=== PATIENT | male | born 1950 ===

== ENCOUNTER 2018-02-13 09:34 | Emergency (ER) | payer SELFPAY ==
[2018-02-13] MEDS ORDERED: LEVOPHED KIT (*) 1 IVSOL 1 KIT IV ONE (09:42)
[2018-02-13 10:18] LABS: PLATELET COUNT, AUTOMATED 190 K/uL (150-450)
[2018-02-13 10:25] LABS: INR 1.86
[2018-02-13] MEDS ORDERED: NS(*) 0.9% 500 ML BAG 500 ML ONE (10:39)
[2018-02-13] MEDS ORDERED: NS 0.9% IVP SCH ×2 (10:45→10:50)
[2018-02-13] MEDS ORDERED: LORAZEPAM IVP SCH ×2 (10:45→10:50)
[2018-02-13] MEDS ORDERED: LORazepam 2 MG/ML VIAL ONE (10:46)
[2018-02-13] MEDS ORDERED: NS(*) 0.9% 1000 ML BAG 1,000 ML ONE (10:50)
[2018-02-13] MEDS ORDERED: TRANEXAMIC AC 1000 MG/10ML SDV ONE (11:40)
[2018-02-13] MEDS ORDERED: IOPAMIDOL 76% 75 ML INFUS BTL 75 ML ONE (12:39)
[2018-02-13] MEDS ORDERED: IOPAMIDOL 61% 75 ML INFUS BTL 75 ML ONE (12:39)
--- NOTE | 2018-02-13 13:24 | RADIOLOGY IMAGING REPORT ---
FACILITY: [facility] [place] PATIENT NAME: Law Cotton : 1950 MR: [id number] V: [id number] EXAM DATE: ORDERING PHYSICIAN: ADRIAN GUEVARA TECHNOLOGIST: Location: [facility] [place] Patient: Law Cotton : 1950 Visit/Account:[id number] Date of Sevice: 02/13/2018 Exam type: CHEST SINGLE AP History: CODE BLUE, ET tube placement, chest tube placement Comparison: None. Findings: There are numerous artifacts from overlapping devices limiting evaluation of the thorax. There is op acification of the lower two thirds of the left thorax with overlying subcutaneous emphysema. The la teral most aspect of the left ribs are not included on study although multiple left rib fractures are suspected. There is a left-sided chest tube the distal tip projects over the mid left thorax. No d efinite pneumothorax seen although study is limited due to the supine nature. There is an NG/OG tube in place. The distal tip projects beyond the inferior border of the film although passes through th e expected location of the gastroesophageal junction. There is an endotracheal tube in place distal tip also not ideally seen due to numerous overlapping artifacts although appears to be between the cl avicles and salud. There is no evidence of mediastinal shift. Cardiac silhouette appears enlarged IMPRESSION: 1. Support lines and tubes as described Dense opacification over the lower two thirds of the left thorax with overlapping subcutaneous emphys thien. This may represent pulmonary contusion/hemorrhage versus atelectasis given the clinical history of trauma Left RIBS not ideally seen although multiple left rib fractures are suspected given the subcutaneous emphysema Report Dictated By: Dot Davis MD at 02/13/2018 1:13 PM Report E-Signed By: Dot Davis MD at 02/13/2018 1:18 PM WSN:[id number]
--- NOTE | 2018-02-13 13:46 | ER Report ---
History and Physical Time Seen By MD: 09:00 Hx. of Stated Complaint: Arrest HPI/ROS Arrived in arrest to the ED. 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 ACLS was initiated on his arrival to the ED. An ultrasound showed pericardial tamponade. Dr. Balderas and I performed a left thoracotomy in the ED. Blood was encountered in the chest and a few superficial lacerations to the heart. We repaired the largest laceration with a 3-0 prolene suture. A chest tube was placed and the chest was temporarily closed. While waiting for transport he was resuscitated with balanced blood products. He recieved 12 of prbc 8 of FFP and 2 packs of platelets. I had to open the chest two more times to evaculate clot. There was no OR available and due to weather conditions the patient could not be transported quickly. He at 12:45. Unable To Obtain Past Medical: Unable to Obtain/Update Reviewed Nurses Notes: No Old Medical Records Reviewed: No Smoking Status: Heavy Tobacco Smoker Constitutional Vital Sign - Last 24 Hours 02/13/18 02/13/18 02/13/18 02/13/18 09:34 09:35 09:36 09:38 Pulse ??? B/P (MAP) 120/93 (102) 58/49 (52) O2 Delivery Ambu-Bag FiO2 100.0 02/13/18 02/13/18 02/13/18 02/13/18 09:40 09:44 09:45 09:48 B/P (MAP) 61/46 (51) 67/55 (59) 64/23 (37) FiO2 100.0 02/13/18 02/13/18 02/13/18 02/13/18 09:49 09:51 09:53 09:55 Pulse 56 B/P (MAP) 39/25 (30) 151/86 (107) 92/62 (72) 02/13/18 02/13/18 02/13/18 02/13/18 09:57 10:00 10:04 10:09 Pulse 197 B/P (MAP) 57/28 (38) 120/78 (92) 98/56 (70) 118/106 (110) Pulse Ox 81 02/13/18 02/13/18 02/13/18 02/13/18 10:12 10:15 10:18 10:19 Pulse 140 B/P (MAP) 103/91 (95) 67/54 (58) 130/28 (62) Pulse Ox 76 02/13/18 02/13/18 02/13/18 02/13/18 10:24 10:27 10:32 10:34 Pulse 60 B/P (MAP) 95/75 (82) 106/91 (96) 120/97 (105) Pulse Ox 83 02/13/18 02/13/18 02/13/18 02/13/18 10:35 10:40 10:41 10:45 B/P (MAP) 89/55 (66) 103/90 (94) 84/65 (71) 84/51 (62) 02/13/18 02/13/18 02/13/18 02/13/18 10:49 10:50 10:55 10:57 Pulse 58 B/P (MAP) 77/77 (77) 98/23 (48) 69/46 (54) 88/56 (67) Pulse Ox 83 02/13/18 02/13/18 02/13/18 02/13/18 11:00 11:04 11:05 11:10 Pulse 61 Resp 121 B/P (MAP) 118/86 (97) 98/98 (98) ???/??? (5981) ???/??? (8766) Pulse Ox 84 02/13/18 02/13/18 02/13/18 02/13/18 11:12 11:13 11:19 11:20 Pulse 66 B/P (MAP) 181/120 (140) 98/53 (68) Pulse Ox 82 FiO2 100.0 02/13/18 02/13/18 02/13/18 02/13/18 11:20 11:20 11:25 11:30 B/P (MAP) 109/86 (94) 117/97 (104) 122/68 (86) Pulse Ox 85 O2 Delivery Mechanical Ventilator FiO2 100.0 02/13/18 02/13/18 02/13/18 02/13/18 11:35 11:38 11:40 11:45 Pulse 74 ??? 60 B/P (MAP) 139/128 (132) ???/??? (9136) 60/46 (51) 141/110 (120) Pulse Ox 75 64 83 02/13/18 02/13/18 02/13/18 02/13/18 11:49 11:50 11:55 12:00 Pulse 166 ??? 96 B/P (MAP) 134/80 (98) 53/24 (34) ???/??? (1665) Pulse Ox 72 74 FiO2 100.0 02/13/18 02/13/18 02/13/18 02/13/18 12:05 12:10 12:15 12:20 Pulse 61 32 29 28 B/P (MAP) ???/??? (1665) ???/??? (1665) ???/??? (1665) 130/47 (74) Pulse Ox 59 17 41 02/13/18 02/13/18 02/13/18 02/13/18 12:25 12:30 12:35 12:40 Pulse ? B/P (MAP) ???/??? (1665) 73/39 (50) 141/105 (117) 104/82 (89) Pulse Ox 3 27 65 02/13/18 02/13/18 02/13/18 02/13/18 12:45 12:50 12:55 13:00 Pulse 30 ? B/P (MAP) 102/83 (89) 112/--- (78) ???/??? (1665) 02/13/18 02/13/18 02/13/18 02/13/18 13:05 13:10 13:15 13:20 Pulse ? Medical Decision Making Data Points Result Diagram: 02/13/18 0942 02/13/18 0000 Laboratory Hematology Test 02/13/18 00:00 02/13/18 09:42 02/13/18 11:20 Sodium Level 140 mmol/L (137-145) Potassium Level 5.7 mmol/L (3.5-5.0) Chloride Level 111 mmol/L (98-107) Carbon Dioxide Level 14 mmol/L (22-30) Blood Urea Nitrogen 22 mg/dl (9-21) Creatinine 1.00 mg/dl (0.66-1.25) Glomerular Filtration Rate Calc > 60.0 Random Glucose 555 mg/dl (75-110) Lactate 13.6 mmol/L (0.7-2.1) Calcium Level 7.3 mg/dl (8.4-10.2) Total Bilirubin 0.9 mg/dl (0.2-1.3) Aspartate Amino Transf (AST/SGOT) 34 U/L (0-35) Alanine Aminotransferase (ALT/SGPT) 38 U/L (0-56) Alkaline Phosphatase 51 U/L (0-126) Ammonia 134 UMOL/L (9-33) Troponin I < 0.012 ng/ml Total Protein 4.6 g/dl (6.3-8.2) Albumin 1.8 g/dl (3.5-5.0) Red Blood Count 3.58 M/uL (4.00-5.60) Mean Corpuscular Volume 102.8 fL (80.0-96.0) Mean Corpuscular Hemoglobin 30.9 pg (26.0-33.0) Mean Corpuscular Hemoglobin Concent 30.1 g/dL (32.0-36.0) Red Cell Distribution Width 15.8 % (11.5-14.5) Mean Platelet Volume 8.6 fL (7.2-11.1) Neutrophils (%) (Auto) 46.9 % (39.4-72.5) Lymphocytes (%) (Auto) 36.4 % (17.6-49.6) Monocytes (%) (Auto) 14.8 % (4.1-12.4) Eosinophils (%) (Auto) 1.3 % (0.4-6.7) Basophils (%) (Auto) 0.6 % (0.3-1.4) Nucleated RBC Relative Count (auto) 0.4 /100WBC Neutrophils # (Auto) 9.6 K/uL (2.0-7.4) Lymphocytes # (Auto) 7.4 K/uL (1.3-3.6) Monocytes # (Auto) 3.0 K/uL (0.3-1.0) Eosinophils # (Auto) 0.3 K/uL (0.0-0.5) Basophils # (Auto) 0.1 K/uL (0.0-0.1) Nucleated RBC Absolute Count (auto) 0.09 K/uL Prothrombin Time 21.6 seconds (12.0-14.4) Prothromb Time International Ratio 1.86 Activated Partial Thromboplast Time 37 seconds (23-35) D-Dimer Quantitative (PE/DVT) 10.88 ug/ml (0-0.50) Urine Color Yellow Urine Clarity Cloudy Urine pH 5.0 pH (4.8-9.5) Urine Specific Isabel 1.018 Urine Protein 100 mg/dL (NEGATIVE) Urine Glucose (UA) 150 mg/dL (NEGATIVE) Urine Ketones Negative mg/dL (NEGATIVE) Urine Blood Large (NEGATIVE) Urine Nitrite Negative (NEGATIVE) Urine Bilirubin Negative (NEGATIVE) Urine Urobilinogen Negative mg/dL (0.2-1.9) Urine Leukocyte Esterase Negative (NEGATIVE) Urine RBC 10 /HPF (0-2/HPF) Urine WBC 8 /HPF (0-5/HPF) Urine Squamous Epithelial Cells None /LPF (NONE-FEW) Urine Transitional Epithelial Cells Moderate /LPF (NONE-FEW) Urine Bacteria Many /HPF (NONE-FEW) Urine Hyaline Casts Few /LPF (NONE-FEW) Urine Mucus Few /HPF (NONE-FEW) Chemistry Test 02/13/18 00:00 02/13/18 09:42 02/13/18 11:20 Glomerular Filtration Rate Calc > 60.0 Lactate 13.6 mmol/L (0.7-2.1) Calcium Level 7.3 mg/dl (8.4-10.2) Total Bilirubin 0.9 mg/dl (0.2-1.3) Aspartate Amino Transf (AST/SGOT) 34 U/L (0-35) Alanine Aminotransferase (ALT/SGPT) 38 U/L (0-56) Alkaline Phosphatase 51 U/L (0-126) Ammonia 134 UMOL/L (9-33) Troponin I < 0.012 ng/ml Total Protein 4.6 g/dl (6.3-8.2) Albumin 1.8 g/dl (3.5-5.0) White Blood Count 20.4 k/uL (4.5-11.0) Red Blood Count 3.58 M/uL (4.00-5.60) Hemoglobin 11.1 g/dL (14.0-18.0) Hematocrit 36.8 % (42.0-52.0) Mean Corpuscular Volume 102.8 fL (80.0-96.0) Mean Corpuscular Hemoglobin 30.9 pg (26.0-33.0) Mean Corpuscular Hemoglobin Concent 30.1 g/dL (32.0-36.0) Red Cell Distribution Width 15.8 % (11.5-14.5) Platelet Count 190 K/uL (150-450) Mean Platelet Volume 8.6 fL (7.2-11.1) Neutrophils (%) (Auto) 46.9 % (39.4-72.5) Lymphocytes (%) (Auto) 36.4 % (17.6-49.6) Monocytes (%) (Auto) 14.8 % (4.1-12.4) Eosinophils (%) (Auto) 1.3 % (0.4-6.7) Basophils (%) (Auto) 0.6 % (0.3-1.4) Nucleated RBC Relative Count (auto) 0.4 /100WBC Neutrophils # (Auto) 9.6 K/uL (2.0-7.4) Lymphocytes # (Auto) 7.4 K/uL (1.3-3.6) Monocytes # (Auto) 3.0 K/uL (0.3-1.0) Eosinophils # (Auto) 0.3 K/uL (0.0-0.5) Basophils # (Auto) 0.1 K/uL (0.0-0.1) Nucleated RBC Absolute Count (auto) 0.09 K/uL Prothrombin Time 21.6 seconds (12.0-14.4) Prothromb Time International Ratio 1.86 Activated Partial Thromboplast Time 37 seconds (23-35) D-Dimer Quantitative (PE/DVT) 10.88 ug/ml (0-0.50) Urine Color Yellow Urine Clarity Cloudy Urine pH 5.0 pH (4.8-9.5) Urine Specific Isabel 1.018 Urine Protein 100 mg/dL (NEGATIVE) Urine Glucose (UA) 150 mg/dL (NEGATIVE) Urine Ketones Negative mg/dL (NEGATIVE) Urine Blood Large (NEGATIVE) Urine Nitrite Negative (NEGATIVE) Urine Bilirubin Negative (NEGATIVE) Urine Urobilinogen Negative mg/dL (0.2-1.9) Urine Leukocyte Esterase Negative (NEGATIVE) Urine RBC 10 /HPF (0-2/HPF) Urine WBC 8 /HPF (0-5/HPF) Urine Squamous Epithelial Cells None /LPF (NONE-FEW) Urine Transitional Epithelial Cells Moderate /LPF (NONE-FEW) Urine Bacteria Many /HPF (NONE-FEW) Urine Hyaline Casts Few /LPF (NONE-FEW) Urine Mucus Few /HPF (NONE-FEW) Coagulation Test 02/13/18 09:42 Prothrombin Time 21.6 seconds Prothromb Time International Ratio 1.86 Activated Partial Thromboplast Time 37 seconds D-Dimer Quantitative (PE/DVT) 10.88 ug/ml Urinalysis Test 02/13/18 11:20 Urine Color Yellow Urine Clarity Cloudy Urine pH 5.0 pH (4.8-9.5) Urine Specific Isabel 1.018 Urine Protein 100 mg/dL (NEGATIVE) Urine Glucose (UA) 150 mg/dL (NEGATIVE) Urine Ketones Negative mg/dL (NEGATIVE) Urine Blood Large (NEGATIVE) Urine Nitrite Negative (NEGATIVE) Urine Bilirubin Negative (NEGATIVE) Urine Urobilinogen Negative mg/dL (0.2-1.9) Urine Leukocyte Esterase Negative (NEGATIVE) Urine RBC 10 /HPF (0-2/HPF) Urine WBC 8 /HPF (0-5/HPF) Urine Squamous Epithelial Cells None /LPF (NONE-FEW) Urine Transitional Epithelial Cells Moderate /LPF (NONE-FEW) Urine Bacteria Many /HPF (NONE-FEW) Urine Hyaline Casts Few /LPF (NONE-FEW) Urine Mucus Few /HPF (NONE-FEW) ED Course/Re-evaluation ED Course at 1245 Decision to Disposition Date: Feb 13, 2018 Decision to Disposition Time: 12:45 Depart Departure Latest Vital Signs Vital Signs Date Time Temp Pulse Resp B/P (MAP) Pulse Ox O2 Delivery O2 Flow Rate FiO2 02/13/18 13:20 ??? 02/13/18 12:55 ???/??? (1665) 02/13/18 12:40 65 02/13/18 11:49 100.0 02/13/18 11:20 Mechanical Ventilator 02/13/18 11:04 121 Impression: Primary Impression: Aortic dissection Condition: Stable Disposition: HOME OR SELF-CARE ELISA PLATT MD Feb 13, 2018 13:46
--- NOTE | 2018-02-13 19:21 | Gen Surgery H&P BLANK ---
GENERAL SURGERY H&P BLANK Operative note dictated for emergency left anterolateral thoracotomy with suture of left ventricle. Dictation number: [id number] DILSHAD NIETO MD Feb 13, 2018 19:21
--- NOTE | 2018-02-14 10:41 | OPERATIVE REPORT 1 ---
EVENT DATE: February 13, 2018 SURGEON: Ernst Balderas M.D. ANESTHESIOLOGIST: [*] ANESTHESIA: This procedure was done in the emergency room and the patient was intubated but was unresponsive due to cardiac arrest and really received minimal anesthesia due to his low blood pressures. PREOPERATIVE DIAGNOSIS Recurring cardiac arrest with pericardial tamponade. POSTOPERATIVE DIAGNOSIS Recurring cardiac arrest with pericardial tamponade. PROCEDURE PERFORMED Emergent left anterolateral thoracotomy with evacuation of blood from left chest and suturing of left ventricle. 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 and was in cardiac arrest and when EMS arrived they started coding him. I am not sure if bystanders starting resuscitating him first or if there was a period where he was not being resuscitated but he was apparently in full cardiac arrest undergoing chest compressions through the entire trip to the hospital and to the ER resuscitation room and I was called down emergently. When I arrived, he was undergoing CPR but would have intermittent return of perfusing circulation and so CPR would be stopped and the ER doctor, Dr. Avina, was performing an ultrasound of his heart and noted that the patient appeared to have blood in the pericardium including clot. He appeared to be in pericardial tamponade. He could not maintain any stable rhythm so he requested a thoracotomy to decompress the patient's pericardium. I went over to the left side of the table and applied Betadine widely across the patient's left chest anteriorly and laterally. We then put up sterile drapes and I gowned and gloved and I took the scalpel and made an incision in the patient's approximate fifth intercostal space from the lateral edge of the sternum all the way down to the table and went through the muscles and over the top of the rib and then entered the pleural space. I placed my hand under the pleura and then continued dividing the pleura and muscles through the entire length of the skin incision. Of note, upon entering the chest there was a lot of blood in the left chest and this was removed mostly with lap, sponges and towels because we were in the ER and did not have suction immediately available to us. They did call the on-call surgery as well, Dr. Mercado, who also arrived as I as making the incision for the anterolateral thoracotomy and he assisted in this procedure. I swept the lung posterior and immediately noticed that the heart was not in the pericardium and that the pericardium had somehow been divided vertically posteriorly to the phrenic nerve. It may be that the patient had developed pericardial tamponade and then had a pericardial rupture as a result of chest compressions for CPR. Dr. Mercado and myself inspected the myocardium and noticed a couple of superficial lacerations that were not full thickness and we placed a [id number] 3-0 Prolene through one of these lacerations. I looked for evidence of ongoing bleeding and there was diffuse oozing but I could not definitely determine where this blood had been coming from, although I can say that the root of the aorta looked like there was something going on there, although I could not see active bleeding from this area. I suspect that the patient had an aortic dissection and bled from the root of his aorta into the pericardium, resulting in the tamponade. Not really seeing significant volume of active bleeding and the patient had stabilized at this point and his heart was showing obvious cardiac contractility and appeared to be in sinus rhythm at least to gross inspection of watching the ventricles contract, emergency air transport was arranged to get him down to [facility], where cardiothoracic team could better evaluate his chest for the pathology that resulted in his cardiac arrest and collapse at the [facility] today. I stapled the skin shut and then applied dry gauze over the incision and covered this with Ioban. I did insert a 36-Fijian chest tube in two rib spaces below my incision so as to keep the chest evacuated and this was hooked up to a Pleur-evac. At this time, because I was not director of aviation and I had a patient in the operating room for an elective case, I talked to Dr. Mercado, who agreed to take over the care of this patient and I went back to the operating room. From my understanding in talking to Dr. Mercado, the patient became very unstable two more times, which required him to look back in his chest and evacuate more blood but after looking several times he could not find the source of bleeding and apparently after 2-1/2 hours of waiting for emergency air transport the patient according to Dr. Mercado. Please refer to his notes for more details about the care of this patient after I had returned to the operating room. VJ
--- NOTE | 2018-02-25 09:08 | ER Report ---
History and Physical Time Seen By MD: 08:00 Hx. 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 EMS arrived on scene and initiated CPR. Patient was noted to be in V. fib and shocked with return of spontaneous circulation briefly. Upon arrival to the [facility] department, brandon compressions being performed. There is no known history of recent illnesses, pain, trauma. Patient has ex- who last saw him 2 days ago and does not know of any recent illnesses, and son who is also unaware of any complains of pain or trauma. REVIEW OF SYSTEMS: Unobtainable secondary to cardiac arrest Allergies: Coded Allergies: No Known Drug Allergies (Unverified , 10/25/11) Home Meds Reported Medications Simvastatin (SIMVASTATIN) 20 Mg Tablet, 20 MG PO HS, TAB 03/09/17 Aspirin (ASPIRIN) 325 Mg Tablet, 325 MG PO Q4-6H PRN for UNKNOWN, TAB 03/09/17 Clopidogrel Bisulfate (Plavix) 75 Mg Tab, 75 MG PO QDAY 10/25/11 Unable To Obtain Past Medical: Unable to Obtain/Update Reviewed Nurses Notes: Yes Old Medical Records Reviewed: Yes Hx Smoking: Yes Smoking Status: Heavy Tobacco Smoker Constitutional Vital Signs Date Time Temp Pulse Resp B/P (MAP) Pulse Ox O2 Delivery O2 Flow Rate FiO2 02/13/18 13:20 ??? 02/13/18 12:55 ???/??? (1665) 02/13/18 12:40 65 02/13/18 11:49 100.0 02/13/18 11:20 Mechanical Ventilator 02/13/18 11:04 121 Physical Exam General Appearance: Patient is comatose being ventilated. Pt was intubated in field. Respiratory: Breath sounds are equal bilaterally. Cardiac: Pt has weak pulse; upon arrival, receiving chest compressions by brandon; on initial pulse check pt is noted to have weak pulse. There are no secondary signs of trauma DIFFERENTIAL DIAGNOSIS: After history and physical exam differential diagnosis was considered for cardiac arrest including myocardial infarction, aortic dissecton, arrhythmia, pulmonary embolus and severe electrolyte abnormality Medical Decision Making Data Points Laboratory Hematology Test 02/13/18 00:00 02/13/18 09:42 02/13/18 09:44 02/13/18 10:20 Sodium Level 140 mmol/L (137-145) Potassium Level 5.7 mmol/L (3.5-5.0) Chloride Level 111 mmol/L (98-107) Carbon Dioxide Level 14 mmol/L (22-30) Blood Urea Nitrogen 22 mg/dl (9-21) Creatinine 1.00 mg/dl (0.66-1.25) Glomerular Filtration Rate Calc > 60.0 Random Glucose 555 mg/dl (75-110) Lactate 13.6 mmol/L (0.7-2.1) Calcium Level 7.3 mg/dl (8.4-10.2) Total Bilirubin 0.9 mg/dl (0.2-1.3) Aspartate Amino Transf (AST/SGOT) 34 U/L (0-35) Alanine Aminotransferase (ALT/SGPT) 38 U/L (0-56) Alkaline Phosphatase 51 U/L (0-126) Ammonia 134 UMOL/L (9-33) Troponin I < 0.012 ng/ml Total Protein 4.6 g/dl (6.3-8.2) Albumin 1.8 g/dl (3.5-5.0) Red Blood Count 3.58 M/uL (4.00-5.60) Mean Corpuscular Volume 102.8 fL (80.0-96.0) Mean Corpuscular Hemoglobin 30.9 pg (26.0-33.0) Mean Corpuscular Hemoglobin Concent 30.1 g/dL (32.0-36.0) Red Cell Distribution Width 15.8 % (11.5-14.5) Mean Platelet Volume 8.6 fL (7.2-11.1) Neutrophils (%) (Auto) 46.9 % (39.4-72.5) Lymphocytes (%) (Auto) 36.4 % (17.6-49.6) Monocytes (%) (Auto) 14.8 % (4.1-12.4) Eosinophils (%) (Auto) 1.3 % (0.4-6.7) Basophils (%) (Auto) 0.6 % (0.3-1.4) Nucleated RBC Relative Count (auto) 0.4 /100WBC Neutrophils # (Auto) 9.6 K/uL (2.0-7.4) Lymphocytes # (Auto) 7.4 K/uL (1.3-3.6) Monocytes # (Auto) 3.0 K/uL (0.3-1.0) Eosinophils # (Auto) 0.3 K/uL (0.0-0.5) Basophils # (Auto) 0.1 K/uL (0.0-0.1) Nucleated RBC Absolute Count (auto) 0.09 K/uL Prothrombin Time 21.6 seconds (12.0-14.4) Prothromb Time International Ratio 1.86 Activated Partial Thromboplast Time 37 seconds (23-35) D-Dimer Quantitative (PE/DVT) 10.88 ug/ml (0-0.50) Whole Blood Glucose 556 mg/DL (75-110) Lab Scanned Report Emergency Blood Test 02/13/18 11:20 02/13/18 11:45 Urine Color Yellow Urine Clarity Cloudy Urine pH 5.0 pH (4.8-9.5) Urine Specific [place] 1.018 Urine Protein 100 mg/dL (NEGATIVE) Urine Glucose (UA) 150 mg/dL (NEGATIVE) Urine Ketones Negative mg/dL (NEGATIVE) Urine Blood Large (NEGATIVE) Urine Nitrite Negative (NEGATIVE) Urine Bilirubin Negative (NEGATIVE) Urine Urobilinogen Negative mg/dL (0.2-1.9) Urine Leukocyte Esterase Negative (NEGATIVE) Urine RBC 10 /HPF (0-2/HPF) Urine WBC 8 /HPF (0-5/HPF) Urine Squamous Epithelial Cells None /LPF (NONE-FEW) Urine Transitional Epithelial Cells Moderate /LPF (NONE-FEW) Urine Bacteria Many /HPF (NONE-FEW) Urine Hyaline Casts Few /LPF (NONE-FEW) Urine Mucus Few /HPF (NONE-FEW) Blood Gas Puncture Site Line Blood Gas Patient Temperature 35.9 DEGREES Arterial Blood pH 7.01 (7.35-7.45) Arterial Blood Partial Pressure CO2 58 mmHg (32-37) Arterial Blood Partial Pressure O2 50 mmHg (60-80) Arterial Blood HCO3 15 mmol/L (20-26) Arterial Blood Oxygen Saturation 68 % (92-100) Arterial Blood Base Excess -16.0 mmol/L Abdirahman Test Nt avail Oxygen Liters/Minute 100 Chemistry Test 02/13/18 00:00 02/13/18 09:42 02/13/18 09:44 02/13/18 10:20 Glomerular Filtration Rate Calc > 60.0 Lactate 13.6 mmol/L (0.7-2.1) Calcium Level 7.3 mg/dl (8.4-10.2) Total Bilirubin 0.9 mg/dl (0.2-1.3) Aspartate Amino Transf (AST/SGOT) 34 U/L (0-35) Alanine Aminotransferase (ALT/SGPT) 38 U/L (0-56) Alkaline Phosphatase 51 U/L (0-126) Ammonia 134 UMOL/L (9-33) Troponin I < 0.012 ng/ml Total Protein 4.6 g/dl (6.3-8.2) Albumin 1.8 g/dl (3.5-5.0) White Blood Count 20.4 k/uL (4.5-11.0) Red Blood Count 3.58 M/uL (4.00-5.60) Hemoglobin 11.1 g/dL (14.0-18.0) Hematocrit 36.8 % (42.0-52.0) Mean Corpuscular Volume 102.8 fL (80.0-96.0) Mean Corpuscular Hemoglobin 30.9 pg (26.0-33.0) Mean Corpuscular Hemoglobin Concent 30.1 g/dL (32.0-36.0) Red Cell Distribution Width 15.8 % (11.5-14.5) Platelet Count 190 K/uL (150-450) Mean Platelet Volume 8.6 fL (7.2-11.1) Neutrophils (%) (Auto) 46.9 % (39.4-72.5) Lymphocytes (%) (Auto) 36.4 % (17.6-49.6) Monocytes (%) (Auto) 14.8 % (4.1-12.4) Eosinophils (%) (Auto) 1.3 % (0.4-6.7) Basophils (%) (Auto) 0.6 % (0.3-1.4) Nucleated RBC Relative Count (auto) 0.4 /100WBC Neutrophils # (Auto) 9.6 K/uL (2.0-7.4) Lymphocytes # (Auto) 7.4 K/uL (1.3-3.6) Monocytes # (Auto) 3.0 K/uL (0.3-1.0) Eosinophils # (Auto) 0.3 K/uL (0.0-0.5) Basophils # (Auto) 0.1 K/uL (0.0-0.1) Nucleated RBC Absolute Count (auto) 0.09 K/uL Prothrombin Time 21.6 seconds (12.0-14.4) Prothromb Time International Ratio 1.86 Activated Partial Thromboplast Time 37 seconds (23-35) D-Dimer Quantitative (PE/DVT) 10.88 ug/ml (0-0.50) Whole Blood Glucose 556 mg/DL (75-110) Lab Scanned Report Emergency Blood Test 02/13/18 11:20 02/13/18 11:45 Urine Color Yellow Urine Clarity Cloudy Urine pH 5.0 pH (4.8-9.5) Urine Specific [place] 1.018 Urine Protein 100 mg/dL (NEGATIVE) Urine Glucose (UA) 150 mg/dL (NEGATIVE) Urine Ketones Negative mg/dL (NEGATIVE) Urine Blood Large (NEGATIVE) Urine Nitrite Negative (NEGATIVE) Urine Bilirubin Negative (NEGATIVE) Urine Urobilinogen Negative mg/dL (0.2-1.9) Urine Leukocyte Esterase Negative (NEGATIVE) Urine RBC 10 /HPF (0-2/HPF) Urine WBC 8 /HPF (0-5/HPF) Urine Squamous Epithelial Cells None /LPF (NONE-FEW) Urine Transitional Epithelial Cells Moderate /LPF (NONE-FEW) Urine Bacteria Many /HPF (NONE-FEW) Urine Hyaline Casts Few /LPF (NONE-FEW) Urine Mucus Few /HPF (NONE-FEW) Blood Gas Puncture Site Line Blood Gas Patient Temperature 35.9 DEGREES Arterial Blood pH 7.01 (7.35-7.45) Arterial Blood Partial Pressure CO2 58 mmHg (32-37) Arterial Blood Partial Pressure O2 50 mmHg (60-80) Arterial Blood HCO3 15 mmol/L (20-26) Arterial Blood Oxygen Saturation 68 % (92-100) Arterial Blood Base Excess -16.0 mmol/L Abdirahman Test Nt avail Oxygen Liters/Minute 100 Coagulation Test 02/13/18 09:42 Prothrombin Time 21.6 seconds Prothromb Time International Ratio 1.86 Activated Partial Thromboplast Time 37 seconds D-Dimer Quantitative (PE/DVT) 10.88 ug/ml Urinalysis Test 02/13/18 11:20 Urine Color Yellow Urine Clarity Cloudy Urine pH 5.0 pH (4.8-9.5) Urine Specific [place] 1.018 Urine Protein 100 mg/dL (NEGATIVE) Urine Glucose (UA) 150 mg/dL (NEGATIVE) Urine Ketones Negative mg/dL (NEGATIVE) Urine Blood Large (NEGATIVE) Urine Nitrite Negative (NEGATIVE) Urine Bilirubin Negative (NEGATIVE) Urine Urobilinogen Negative mg/dL (0.2-1.9) Urine Leukocyte Esterase Negative (NEGATIVE) Urine RBC 10 /HPF (0-2/HPF) Urine WBC 8 /HPF (0-5/HPF) Urine Squamous Epithelial Cells None /LPF (NONE-FEW) Urine Transitional Epithelial Cells Moderate /LPF (NONE-FEW) Urine Bacteria Many /HPF (NONE-FEW) Urine Hyaline Casts Few /LPF (NONE-FEW) Urine Mucus Few /HPF (NONE-FEW) ED Course/Re-evaluation ED Course Patient presents with compressions and route. Upon initial pulse check, we note weak pulse. Patient appears to be in sinus rhythm, though continues to be nonresponsive. He does show some breathing over the ventilator. Upon my initial assessment, I note what appears to be large pericardial effusion or clot on bedside echo. I performed bedside pericardiocentesis, ultrasound-guided, but was unable to obtain return of blood presumably due to clot. At this point, I consult with surgery to come to ED for potential need for operative pericardial window. During continued initial resuscitation, we were able to obtain a hypotensive blood pressure, and patient continues to be in sinus rhythm. In discussion with the general surgeon, it was decided to attempt bedside thoracotomy as patient was not stable enough to go to operating room, and given good cardiac contractility on ultrasound, if [place] can be evacuated causing tamponade, patient may have improved chance at survival. In initiation of thoracotomy, we considered likelihood of traumatic versus nontraumatic aortic dissection. Thoracotomy proceeded, and significant amount of clot was found in chest, thought to be consistent with probable aortic dissection at the root. T hrough this we were able to continue to obtain vital signs, therefore we initiated the massive transfusion protocol, levothyroid for blood pressure support, and attempted TX a 1 g to help prevent further bleeding. Initially, we were able to continue to perfuse, however despite multiple units of PRBCs, platelets, and FFP, patient ultimately . Procedure Procedure: Pericardiocentesis Indications: Ultrasound demonstration of pericardial fluid in a patient with cardiac arrest. Procedure: The skin was prepped in the usual fashion. Using a long needle a subxyphoid approach was used and the needle was guided posterior and cephalad. The pericardial space was entered. no blood was aspirated. The patient did not have any improvement in the clinical status. The procedure was performed by myself. Decision to Disposition Date: Feb 13, 2018 Decision to Disposition Time: 12:45 Critical Care Time I spent a total of 150 minutes of critical care time in obtaining history, performing a physical exam, bedside monitoring of interventions, collecting and interpreting tests and discussion with consultants but not including time spent performing procedures. Depart Departure Impression: Primary Impression: Cardiac arrest Condition: Disposition: Departure Forms: Medications Reconciliation, Patient Portal Information ADRIAN GUEVARA MD Feb 25, 2018 09:08
== END 2018-02-13 13:25 | disposition expired ==
LOC: ER 10:20 → MERGE 10:20 → ER 13:25
DX: I71.00 Dissection of unspecified site of aorta (principal)
CPT/HCPCS: 32100; 36416; 36430; 36600; 71045; 81001; 82140; 82803; 82948; 83605; 84484; 85025; 85379; 85610; 85730; 86850; 86900; 86901; 86920; 92950; 94002; 94770; 99291; 99292; A7048; C1758; J0171; J0282; J0461; J3490; P9016; P9017; P9035; Q9967; 82040; 82247; 82310; 82374; 82435; 82565; 82947; 84075; 84132; 84155; 84295; 84450; 84460; 84520

== ENCOUNTER → 2018-02-13 | Outpatient (CLI) | payer SELFPAY ==
[~2018-02-13] MED LIST: ASPI-757 PO; CLO75 PO; PEN250 PO; SIMV-49 PO
== END ==
LOC: AMB 09:13
PROVIDERS: ATTEND Nurse Practitioner
DX: R40.20 Unspecified coma (principal); R00.1 Bradycardia, unspecified; F17.210 Nicotine dependence, cigarettes, uncomplicated
CPT/HCPCS: A0425; A0433